=== PATIENT | male | born 2000 | race Caucasian/White ===

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

== ENCOUNTER 2021-08-27 11:44 | Emergency (ER) | payer MEDICAID, SELFPAY ==
[2021-08-27 11:46] VITALS: BP 133/78; PULSE 77; RESP 16; TEMP 36.3; O2SAT 100
--- NOTE | 2021-08-27 12:47 | ED.GENADUL_ITS ---
Discharge Plan Disposition Patient Disposition: HOME Condition: Improving Discharge Details Clinical Impression: Laceration Primary Care Provider: Moises Stanley ED Provider: Jazmine Hodge Home Meds and New Rx's Prescriptions: Continued bupropion HCl 300 mg tablet extended release 24 hr 300 mg PO QAM Qty: 90 3RF Discharge Instructions Instructions: Laceration (ED) Additional Instructions: Please return immediately to the emergency department if you develop any new or worsening symptoms, if your condition does not improve as expected, or if you become otherwise concerned. It is extremely important that you call soon as possible to make an appointment to be seen in follow-up for this visit by your primary care doctor. You will need to have your sutures removed in 10 days as we discussed Stand Alone Forms: Work Release Referrals: Moises Stanley MD [Primary Care Provider] - Discharge Data Discharge Date/Time-TO BE ENTERED AT DEPARTURE: 08/27/21 13:07 Medical Decision Making Vernon Benz is a 21-year-old man with history of depression, anxiety presenting to emergency department laceration. Patient reports that just prior to arrival he was at work when a wrench slipped while he was twisting a bolt, and he sustained a laceration to the dorsal aspect of base of the right thumb. He denies any other. He denies weakness, numbness, tingling. Patient reports that he is able to range thumb normally. Denies any other injury, denies any other pain. Patient states that he was previously well in his usual state of health. Record review shows last tetanus 2013. Exam shows 1.5 cm laceration over the right first MCP, superficial without bone/tendon exposure, does not penetrate the joint space, full painless range of motion of the thumb, thumb is neurovascularly intact. Tetanus up-to-date. Plan for laceration repair, see procedure note. Laceration repaired without complication. Wound dressing, baseball splint placed. I had a discussion with Patient regarding return to emergency department precautions, home care, and importance of outpatient follow-up. Pt verbalizes understanding of the plan and is amenable. Patient discharged to home with clear plan for outpatient follow-up. All questions were answered. Disposition decision was made weighing the risks and benefits of hospitalization versus outpatient treatment, the risk for further decompensation, and the patient's wishes. HPI General Date/Time Provider Initiated Documentation: 08/27/21 11:49 . HPI Narrative: Vernon Benz is a 21-year-old man with history of depression, anxiety presenting to emergency department laceration. Patient reports that just prior to arrival he was at work when a wrench slipped while he was twisting a bolt, and he sustained a laceration to the dorsal aspect of base of the right thumb. He denies any other. He denies weakness, numbness, tingling. Patient reports that he is able to range thumb normally. Denies any other injury, denies any other pain. Patient states that he was previously well in his usual state of health. Record review shows last tetanus 2013. Related Data Home Medications Medication Instructions Recorded Confirmed bupropion HCl 300 mg 24 hr tablet, 300 mg PO QAM #90 tab 06/18/21 08/27/21 extended release Previous Rx's Medication Instructions Recorded bupropion HCl 300 mg 24 hr tablet, 300 mg PO QAM #90 tab 06/18/21 extended release Allergies Allergy/AdvReac Type Severity Reaction Status Date / Time fluoxetine AdvReac Verified 08/27/21 11:51 General Stated Complaint: Laceration GUY: 4 Review of Systems Narrative: Constitutional: denies fevers Eyes: denies eye pain ENT: denies ear pain, dental pain, sore throat Cardiovascular: denies chest pain Respiratory: denies SOB, cough GI: denies abdominal pain, vomiting, diarrhea : denies flank pain MSK: denies back pain, neck pain, arthralgias Skin: denies rash, reports skin wound to right thumb as per HPI Neuro: denies headaches, numbness, weakness PFSH All Active Problems (Updated 08/27/21 @ 12:45 by Jazmine Hodge MD) Laceration (Acute) Personal history of nicotine dependence (Acute) Anxiety (Acute 07/19/14) see note 07/19/14 worries about dying, parents, checks doors at night , crowds Depressive disorder (Acute 07/19/14) started on fluox 07/24 -- restart meds 09/05/29 see note STOPPED MEDS 10/26- TREMOR AND NOT HELPING 10/29/19 start sertraline 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 Paternal Grandmother No problems noted. Social History Smoking/Tobacco Use Status: Current every day Tobacco Type: e-cigarettes and smokeless tobacco Tobacco: How many years used: 5 Smokeless tobacco user: chewing tobacco and other Second Hand Exposure: Yes Smoking risk assessment performed?: Yes Alcohol Intake: current Alcohol Intake frequency: a few times a week Alcohol type: beer and hard liquor Drug use: Never Substance use type: does not use Caregiver/Support person: Yes Household members: significant other Housing: apartment Communication Needs: None Do you need help understanding health information?: Never Pets and animals: Yes Pets and animals: cat(s) Sexually active: Yes Do you think of yourself as: straight/heterosexual Current gender identity: male What is your relationship status?: living with partner How often do you talk on the phone with friends or family?: three or more times per week How often do you get together with friends or relatives?: twice per week How often do you attend congregation or denominational services?: decline to answer Do you belong to any clubs or organized social groups?: no Panel score (0-1 are the most socially isolated patients): 2 Duration: < 15 minutes/day Nichole/Anabaptism: No preference Special nichole needs: No Seatbelt use: never Drive intox or ride w/intox commercial relief driver: No Do you feel safe at home: Yes Do you feel safe in your relationship?: Yes Exam Narrative Exam Narrative: Constitutional: well and [id number], pleasant, conversing normally HENT: head atraumatic/normocephalic/normal inspection, mucous membranes moist Eyes: conjunctiva normal, sclera normal, pupils 3mm b/l Neck: no stridor, normal ROM, trachea midline Resp: normal work of breathing, speaking in full sentences Cardio: normal rate, normal rhythm Skin: warm, dry, normal color, no rash Neuro: alert, not altered, grossly non-focal, normal tone Ext: no edema, 1.5 cm laceration over the dorsal aspect of the right first MCP joint. Bleeding controlled. Laceration is superficial, no underlying structures exposed, no bony tenderness of the MCP joint, full range of motion of the, painless. Normal sensation motor exam of the thumb, brisk cap refill. No other injury of the right hand. Psych: normal mood, normal affect, normal behavior Course Vital Signs Vital signs: Vital Signs Temperature 36.3 C L 08/27/21 11:46 Pulse 77 08/27/21 11:46 Respiratory Rate 16 08/27/21 11:46 Blood Pressure 133/78 08/27/21 11:46 Pulse Oximetry 100 08/27/21 11:46 Temperature 36.3 C L 08/27/21 11:46 Temperature Source Temporal Artery Scan 08/27/21 11:46 Pulse 77 08/27/21 11:46 Respiratory Rate 16 08/27/21 11:46 Respiratory Effort Non-Labored 08/27/21 11:49 Blood Pressure 133/78 08/27/21 11:46 Blood Pressure Position Sitting 08/27/21 11:46 Pulse Oximetry 100 08/27/21 11:46 Oxygen Delivery Method Room Air 08/27/21 11:46 Oxygen Flow Rate 0 08/27/21 11:46 Pain Level 6 08/27/21 11:51 Procedures Laceration Laceration 1: Site: hand Side (If applicable): right Size (cm): 1.5 Description: linear Depth: simple, single layer Local Anesthetic: Lidocaine 1% and with Epi Amount of anesthesia used (mL): 2 Pre-repair: irrigated extensively (Under pressure) Skin layer closed with: nylon Size (cm): 4-0 Number of sutures: 3 Technique: simple, interrupted PAWSS Have you Been Recently Intoxicated or Drunk Within the Last 30 days?: No Have you Ever Experienced Previous Episodes of Alcohol Withdrawal?: No Have you ever Experienced Withdrawal Seizures?: No Have you ever Experienced Delirium Tremens(DT)s?: No Have you ever undergone Alcohol Rehabilitation Treatment (i.e, inpt ot outpatie nt treatment programs)?: No Have you ever Experienced Blackouts?: No Have you ever Combined Alcohol with other Downers within the last 90 days?: No Have you ever Combined Alcohol with any other Substance of Abuse during the last 90 days?: No Positive Blood Alcohol level on Presentation? [PCS.BAL]: No Evidence of Increased Autonomic Activity (i.e. HR>120, tremor, sweating, agitation, nausea)?: No Result: 0
== END 2021-08-27 13:07 | disposition home or self-care (01) ==
PROVIDERS: Emergency Provider Student in an Organized Health Care Education/Training Program; PCP Family Medicine
DX: S61.011A Laceration without foreign body of right thumb without damage to nail, initial encounter (principal); W27.8XXA Contact with other nonpowered hand tool, initial encounter; Y99.0 Civilian activity done for income or pay
CPT/HCPCS: 12001; 29130

== ENCOUNTER 2021-12-01 14:29 | Emergency (ER) | payer MEDICAID, SELFPAY ==
--- NOTE | 2021-12-01 14:30 | RT.EKG_ITS ---
APPROVED REPORT Exam: Resting ECG Reason for Exam: overdose Patient Location: E HR:59 bpm ECG Measurements Heart Rate 59 AXIS OH 105 P 47 QRSd 84 QRS 80 QT 376 T 59 QTc 370 Conclusion Sinus bradycardia...rate< 60 Atrial premature complex...SV complex w/ short R-R interval. Sinus. Normal axis. No STEMI. I have reviewed and interpreted ECG and agree with software generated interpretation.
[2021-12-01 14:33] VITALS: BP 137/90; PULSE 83; RESP 16; TEMP 36.9; O2SAT 100
--- NOTE | 2021-12-01 14:47 | ED.GENADUL_ITS ---
Discharge Plan Disposition Patient Disposition: AGAINST MEDICAL ADVICE Discharge Details Clinical Impression: Accidental drug overdose Primary Care Provider: Rodrigo Benítez ED Provider: David Brian Home Meds and New Rx's Prescriptions: No Action bupropion HCl 300 mg tablet extended release 24 hr 300 mg PO QAM Qty: 90 3RF ibuprofen 300 mg Tablet 600 mg PO PRN PRN Discharge Instructions Instructions: Adult Overdose (ED) Additional Instructions: At this time the poison control recommendations are observation for 16 hours, you have declined this and are going to leave AMA. As we discussed, please watch for new or worsening symptoms and return immediately to the ER Discharge Data Discharge Date/Time-TO BE ENTERED AT DEPARTURE: 12/01/21 15:09 Medical Decision Making 21-year-old gentleman who presents for a potential accidental overdose. He s tates that he meant to take 4 tablets of ibuprofen and may have accidentally take 4 tablets of 300 mg bupropion XL approximately 30 minutes ago. Patient states that he is unsure which of the medications he took but at this time is feeling asymptomatic. He contacted his mother who then contacted poison control recommended coming to the ER. We were contacted by poison control and they recommended 16-hour observation. Patient potentially took more than 1 g and symptoms to watch for which include tachycardia, agitation, potential seizures, treat symptomatically. EKG was obtained and was unremarkable. I discussed the recommendations of poison control with the patient and at this time he is asymptomatic, not sure if in fact he took the wrong medication, denies any suicidal homicidal ideations, is requesting discharge. He does not feel as though waiting 16 hours in observation is appropriate as he feels well. I did explain to him the recommendations of poison control. He is requesting to leave AMA. Patient appears clinically sober, is of sound mind, and based upon my clinical examination has the capacity to make their own decisions. We have offered treatment options and discussed the the risks and benefits of these options and refusing these options, including and/or disability specific to the patient's pathology. Pt is able to discuss and understands the risks and b enefits and alternatives of treatment and refusing treatment. We have tried to involve the patient's family or support group that was present here in the exam room. The patient still chooses to leave before evaluation and treatment can be completed AGAINST MEDICAL ADVICE. This documentation was generated using Dragon dictation system, please disregard any oddities of phrase or misspellings. Medical Records Medical records reviewed: Yes I reviewed the patient's medical records. ECG Data Attestation: I personally reviewed and interpreted this ECG (s) as follows: Interpretation: Please see official report by Dr. Arreola. Sinus bradycardia, ventricular rate of 59, no STEMI HPI General Mode of arrival: ambulatory . Date/Time Provider Initiated Documentation: 12/01/21 14:47 . Limitations to Documentation: no limitations . Information obtained by: patient and family . HPI Narrative: This is a 21-year-old male, past medical history of anxiety, depression, OCD, presenting to the ER for potential accidental overdose. He states that he stayed up late last night, awoke today with a mild headache which is not uncommon. He meant to take ibuprofen but questions if instead he took 4 tablets of his bupropion HCl 300 mg XL instead. He did state that he took his normal dose of 1 tablet this morning. Patient reports that he is currently asymptomatic but after calling his mother and then contacting poison control, they recommended coming to the ER. He again denies any symptoms whatsoever, reports this was purely accidental, denies any SI or HI, reports feeling safe. He denies any visual changes, neck pain, chest pain, shortness of breath, rapid heart rate, abdominal pain, nausea, vomiting, numbness, tingling, weakness, agitation. Related Data Home Medications Medication Instructions Recorded Confirmed bupropion HCl 300 mg 24 hr tablet, 300 mg PO QAM #90 tabs 06/18/21 12/01/21 extended release ibuprofen 300 mg tablet 600 mg PO PRN PRN 12/01/21 12/01/21 Previous Rx's Medication Instructions Recorded bupropion HCl 300 mg 24 hr tablet, 300 mg PO QAM #90 tabs 06/18/21 extended release Allergies Allergy/AdvReac Type Severity Reaction Status Date / Time fluoxetine AdvReac tremulousne Verified 12/01/21 14:40 ss General Stated Complaint: OD/Poison GUY: 4 Review of Systems Constitutional Constitutional: Denies fever(s), Reports headache(s) and Denies weakness Eyes Eyes: Denies change in vision ENT Ears, Nose, Mouth, and Throat: Reports headache(s) and Denies neck pain Cardiovascular Cardiovascular: Denies chest pain and Denies dyspnea Respiratory Respiratory: Denies dyspnea Gastrointestinal Gastrointestinal: Denies abdominal pain, Denies nausea and Denies vomiting Musculoskeletal Musculoskeletal: Denies neck pain and Denies tingling Integumentary/Breasts Skin/Breast: Denies rash Neurologic Neurologic: Reports headache(s), Denies tingling and Denies weakness Psychiatric Psychiatric: Denies homicidal ideation and Denies suicidal ideation PFSH All Active Problems Accidental drug overdose (Acute) Personal history of nicotine dependence (Acute) Anxiety (Acute 07/19/14) see note 07/19/14 worries about dying, parents, checks doors at night , crowds Depressive disorder (Acute 07/19/14) started on fluox 07/24 -- restart meds 09/05/29 see note STOPPED MEDS 10/26- TREMOR AND NOT HELPING 10/29/19 start sertraline 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 Paternal Grandmother No problems noted. Social History Smoking/Tobacco Use Status: Never Tobacco: How many years used: 5 Smokeless tobacco user: chewing tobacco and other Second Hand Exposure: Yes Smoking risk assessment performed?: Yes Alcohol Intake: current Alcohol Intake frequency: a few times a week Alcohol type: beer and hard liquor Drug use: Never Substance use type: does not use Caregiver/Support person: Yes Household members: significant other Housing: apartment Communication Needs: None Do you need help understanding health information?: Never Pets and animals: Yes Pets and animals: cat(s) Sexually active: Yes Do you think of yourself as: straight/heterosexual Current gender identity: male What is your relationship status?: living with partner How often do you talk on the phone with friends or family?: three or more times per week How often do you get together with friends or relatives?: twice per week How often do you attend uatsdin or episcopalian services?: decline to answer Do you belong to any clubs or organized social groups?: no Panel score (0-1 are the most socially isolated patients): 2 Duration: < 15 minutes/day Nichole/Jainism: No preference Special nichole needs: No Seatbelt use: never Drive intox or ride w/intox patrol driver: No Do you feel safe at home: Yes Do you feel safe in your relationship?: Yes Exam Const General: cooperative, healthy appearing, comfortable and no acute distress Orientation: alert, awake and oriented x3 HENMT Head: normal to inspection, normocephalic and atraumatic Face and sinus: normal facial exam Mouth: moist mucous membranes Eyes General: appearance normal, both eyes and all related structures Conjunctivae: conjunctivae normal Neck Neck: normal visual inspection, full ROM, trachea midline and supple Resp Effort & Inspection: normal respiratory effort and able to speak in complete sentences Auscultation: clear to auscultation bilaterally Cardio Rate: regular rate Rhythm: regular rhythm GI Palpation: soft and nontender Back/Spine/Pelvis Back: No back tenderness Skin General skin exam: no rashes or lesions noted Neuro General: patient alert, patient awake, patient oriented x3, moves all extremities and no focal motor deficits Cognition: normal cognition Speech: speech normal Gait: normal gait Motor: muscle tone normal throughout Sensory Exam: no sensory deficits noted Extrem General: normal to inspection and full ROM Psych Appearance: grossly normal Mental Status: mental status grossly normal Speech and Movement: speech and movement normal Mood: congruent mood Affect: normal affect Attitude: cooperative Thought Process: normal Thought Content: normal, no homicidality and suicidality Insight: insight good Judgment: judgment good Course Vital Signs Vital signs: Vital Signs Temperature 36.9 C 12/01/21 14:33 Pulse 83 12/01/21 14:33 Respiratory Rate 16 12/01/21 14:33 Blood Pressure 137/90 12/01/21 14:33 Pulse Oximetry 100 12/01/21 14:33 Temperature 36.9 C 12/01/21 14:33 Temperature Source Temporal Artery Scan 12/01/21 14:33 Pulse 83 12/01/21 14:33 Respiratory Rate 16 12/01/21 14:33 Respiratory Effort 12/01/21 14:37 Blood Pressure 137/90 12/01/21 14:33 Blood Pressure Position Sitting 12/01/21 14:33 Pulse Oximetry 100 12/01/21 14:33 Oxygen Delivery Method Room Air 12/01/21 14:33 Oxygen Flow Rate 0 12/01/21 14:33 Pain Level 0 12/01/21 14:33 PAWSS Have you Been Recently Intoxicated or Drunk Within the Last 30 days?: Yes Have you Ever Experienced Previous Episodes of Alcohol Withdrawal?: No Have you ever Experienced Withdrawal Seizures?: No Have you ever Experienced Delirium Tremens(DT)s?: No Have you ever undergone Alcohol Rehabilitation Treatment (i.e, inpt ot outpatient treatment programs)?: No Have you ever Experienced Blackouts?: No Have you ever Combined Alcohol with other Downers within the last 90 days?: No Have you ever Combined Alcohol with any other Substance of Abuse during the last 90 days?: No Positive Blood Alcohol level on Presentation? [PCS.BAL]: No Result: 1
[2021-12-01 15:08] VITALS: RESP 17
== END 2021-12-01 15:09 | disposition left against medical advice (07) ==
PROVIDERS: Emergency Provider Physician Assistant; PCP Nurse Practitioner Family
DX: T65.91XA Toxic effect of unspecified substance, accidental (unintentional), initial encounter (principal); R51.9 Headache, unspecified; F17.220 Nicotine dependence, chewing tobacco, uncomplicated; F17.290 Nicotine dependence, other tobacco product, uncomplicated; Z53.20 Procedure and treatment not carried out because of patient's decision for unspecified reasons
CPT/HCPCS: 93005; 99283; 93010; 99284

== ENCOUNTER 2024-01-17 10:22 | Outpatient (CLI) | payer BC, SELFPAY ==
--- NOTE | 2024-01-17 10:15 | RT.EKG_ITS ---
APPROVED REPORT Exam: Resting ECG Reason for Exam: Chest pain/Light headedness Patient Location: O HR:60 bpm ECG Measurements Heart Rate 60 AXIS AZ 117 P 62 QRSd 89 QRS 70 QT 399 T 53 QTc 399 Conclusion Sinus rhythm...normal P axis, V-rate 50- 99 Borderline short AZ interval...AZ int <120mS Otherwise normal ECG
== END 2024-01-17 10:23 | disposition home or self-care (01) ==
LOC: DI.CM 10:23
PROVIDERS: PCP Nurse Practitioner Family; Visit Provider Physician Assistant
DX: R07.9 Chest pain, unspecified (principal)
CPT/HCPCS: 93010

== ENCOUNTER 2024-01-17 11:31 | Emergency (ER) | payer BC, SELFPAY ==
[2024-01-17] VITALS (11 sets, daily range): BP systolic 113–125; BP diastolic 68–69; PULSE 58–83; RESP 11–20; TEMP 36.4; O2SAT 99
--- NOTE | 2024-01-17 11:30 | RT.EKG_ITS ---
APPROVED REPORT Exam: Resting ECG Reason for Exam: Chest Pain Patient Location: E HR:74 bpm ECG Measurements Heart Rate 74 AXIS VA 113 P 71 QRSd 84 QRS 74 QT 372 T 55 QTc 414 Conclusion Sinus rhythm.. 74 normal axis no stemi
[2024-01-17 12:02] LABS: Abs Immature Grans 0.03 10^3/uL (0.0-0.06); Absolute Basophil Count 0.04 10^3/uL (0.0-0.2); Absolute Eosinophil Count 0.13 10^3/uL (0.0-0.7); Absolute Lymphocyte Count 2.42 10^3/uL (1.2-3.4); Absolute Monocyte Count 0.52 10^3/uL (0.1-0.8); Absolute Neutrophil Count 3.71 10^3/uL (1.2-6.7); Basophils % 0.6 %; Eosinophils % 1.9 %; HCT 45.2 % (40.0-50.0); HGB 16.3 g/dL (13.5-17.5); Immature Grans % 0.4 %; Lymphocytes % 35.3 %; MCH 31.7 pg (27.0-33.0); MCHC 36.1 % (32.0-36.0); MCV 88 fL (80-95); Monocytes % 7.6 %; Neutrophils % 54.2 %; Platelet Count 288 10^3/uL (130-400); RBC 5.14 10^6/uL (4.36-5.78); RDW 11.5 % (11.8-14.1); WBC 6.85 10^3/uL (4.4-10.8)
--- NOTE | 2024-01-17 12:12 | DI.RAD_ITS ---
Exam(s) XR CHEST 2V PA LATERAL EXAM: XR CHEST 2V PA LATERAL CLINICAL HISTORY: chest pain. TECHNIQUE: 2D digital imaging was performed. COMPARISON: No exams were available for comparison FINDINGS: 2 views: Heart size is normal. The mediastinum is not widened. Lungs are clear. No infiltrates nor pleural effusions. IMPRESSION: No acute pulmonary findings. DATA REPOSITORY: RADIATION DOSE DELIVERED:
[2024-01-17 12:19] LABS: ALT 25 U/L (16-63); AST 15 U/L (15-37); Albumin 4.6 g/dL (3.4-5.0); Alkaline Phosphatase 74 U/L (46-116); Anion Gap 7.6 mmol/L (3-11); BUN 13 mg/dL (7-18); Bilirubin, Total 0.62 mg/dL (0.2-1.0); CO2 29.4 mmol/L (21.0-32.0); Chloride 104 mmol/L (98-107); Estimated GFR 109.13 (mL/min/1.73m2); Glucose 96 mg/dL (74-106); Magnesium 1.8 mg/dL (1.8-2.4); Potassium 3.7 mmol/L (3.5-5.1); Sodium 141 mmol/L (136-145); Total Protein 7.8 g/dL (6.4-8.2); Troponin I < 50 ng/L (< or =60)
[2024-01-17 12:27] LABS: Calcium 9.2 mg/dL (8.5-10.1)
--- NOTE | 2024-01-17 12:27 | ED.GENADUL_ITS ---
Discharge Plan Disposition Patient Disposition: Home Condition: Stable Discharge Details Clinical Impression: Chest pain Primary Care Provider: Rodrigo Benítez ED Provider: Nubia Og Home Meds and New Rx's Prescriptions: No Action alprazolam 0.5 mg tablet 0.5 mg PO BID PRN (Reason: anxiety) Qty: 28 0RF guanfacine 1 mg tablet extended release 24 hr 1 mg PO QPM Qty: 30 2RF Discharge Instructions Instructions: Chest Pain, Adult ED Additional Instructions: * pain unlikely to be from your heart, EKG and blood work look normal today * chest xray is also normal * try motrin or tylenol for pain if your symptoms are more than brief * return with any concerns or follow up with PCP HPI General Date/Time Provider Initiated Documentation: 01/17/24 11:43 . Limitations to Documentation: no limitations . Information obtained by: patient . HPI Narrative: 23-year-old gentleman with out significant past medical history presents for evaluation of chest pain. He reports that since last night he has had 3 episodes of pain. Initially pain was substernal. Occurred while he was laying in bed. Did not radiate. Not associated with shortness of breath. This morning he had 2 episodes that were associated with some lightheadedness. These episodes were very brief. He localizes the pain in his left armpit. Is never had symptoms like this before. Not associated with exertion. Reports prior smoking history, but not a current smoker. Reports that his grandfather had a heart attack around age 40 that resulted in . Related Data Home Medications ?Medication ?Instructions ?Recorded ?Confirmed alprazolam 0.5 mg tablet 0.5 mg PO BID PRN anxiety #28 tabs 12/29/23 01/17/24 guanfacine 1 mg tablet,extended 1 mg PO QPM #30 tabs 12/29/23 01/17/24 release 24 hr Previous Rx's ?Medication ?Instructions ?Recorded alprazolam 0.5 mg tablet 0.5 mg PO BID PRN anxiety #28 tabs 12/29/23 guanfacine 1 mg tablet,extended 1 mg PO QPM #30 tabs 12/29/23 release 24 hr Allergies Allergy/AdvReac Type Severity Reaction Status Date / Time fluoxetine AdvReac tremulousne Verified 01/17/24 11:43 ss General Stated Complaint: Chest Pain UGY: 2 Exam Narrative Exam Narrative: Review of Systems: All systems reviewed & are unremarkable except as noted in HPI and below Well-developed, no acute distress NCAT PERRL, normal conjunctiva RRR no murmur, no chest wall tenderness Unlabored respiratory effort clear bilaterally Nondistended abdomen Extremities w/o deformity, no cyanosis, no edema No rashes or lesions. no focal neurologic deficits Appropriate mood and affect Course Vital Signs Vital signs: Vital Signs Temperature 36.4 C 01/17/24 11:36 Pulse 65 01/17/24 11:36 Respiratory Rate 16 01/17/24 11:36 Blood Pressure 125/69 01/17/24 11:36 Pulse Oximetry 99 01/17/24 11:36 Temperature 36.4 C 01/17/24 11:36 Pulse 65 01/17/24 11:36 Respiratory Rate 16 01/17/24 11:36 Blood Pressure 125/69 01/17/24 11:36 Blood Pressure Position Sitting 01/17/24 11:36 Pulse Oximetry 99 01/17/24 11:36 Oxygen Delivery Method Room Air 01/17/24 11:36 Oxygen Flow Rate 0 01/17/24 11:36 Pain Level 7 01/17/24 11:36 Lab/Test Results Lab/Test Results: Laboratory Tests Range/Units 01/17/24 11:52 WBC (4.4-10.8) 10^3/uL 6.85 RBC (4.36-5.78) 10^6/uL 5.14 Hgb (13.5-17.5) g/dL 16.3 Hct (40.0-50.0) % 45.2 MCV (80-95) fL 88 MCH (27.0-33.0) pg 31.7 MCHC (32.0-36.0) % 36.1 H RDW (11.8-14.1) % 11.5 L Plt Count (130-400) 10^3/uL 288 MPV (8.0-11.0) fL 9.0 Immature Gran % % 0.4 Neutrophils % % 54.2 Lymphocytes % % 35.3 Monocytes % % 7.6 Eosinophils % % 1.9 Basophils % % 0.6 Nucleated RBC % (0.0-0.3) % 0.0 Absolute Neutrophils (1.2-6.7) 10^3/uL 3.71 Absolute Lymphocytes (1.2-3.4) 10^3/uL 2.42 Absolute Monocytes (0.1-0.8) 10^3/uL 0.52 Absolute Eosinophils (0.0-0.7) 10^3/uL 0.13 Absolute Basophils (0.0-0.2) 10^3/uL 0.04 Sodium (136-145) mmol/L 141 Potassium (3.5-5.1) mmol/L 3.7 Chloride (98-107) mmol/L 104 Carbon Dioxide (21.0-32.0) mmol/L 29.4 Anion Gap (3-11) mmol/L 7.6 BUN (7-18) mg/dL 13 Creatinine (0.70-1.30) mg/dL 1.0 Est GFR (CKD-EPI 2020) (mL/min/1.73m2) 109.13 Glucose (74-106) mg/dL 96 Magnesium (1.8-2.4) mg/dL 1.8 Total Bilirubin (0.2-1.0) mg/dL 0.62 AST (15-37) U/L 15 ALT (16-63) U/L 25 Alkaline Phosphatase (46-116) U/L 74 Troponin I (< or =60) ng/L < 50 Total Protein (6.4-8.2) g/dL 7.8 Albumin (3.4-5.0) g/dL 4.6 Medical Decision Making Emergency evaluation of chest pain. Patient has no chest pain at this time. He has very low risk factors for cardiac etiology of his pain. Suspect pleurisy or musculoskeletal pain to be more likely cause. EKG is sinus 74, normal axis, no acute ischemic changes. Other than his family history of his grandfather having early cardiac at age 40, the patient is low risk. Other than the family history, I do not feel the patient needs blood work, but he seems to be fairly anxious about a cardiac etiology and was sent from urgent care because of it. Lab work was obtained, no leukocytosis, no anemia. Normal platelet count. Electrolytes without derangement. Normal renal function, troponin is negative. Chest x-ray reviewed, no focal consolidation, normal heart size, no pulmonary edema or pleural effusion. Return precautions advised. Recommend follow-up with PCP as needed. Discharged in good condition. Medical Records Medical records reviewed: Yes I reviewed the patient's medical records. Lab Data Lab results reviewed: Yes I reviewed the patient's lab results. 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 Paternal Grandmother No problems noted. Social History Smoking/Tobacco Use Status: Former Tobacco Use tobacco type: e-cigarettes and smokeless tobacco Quit Date: 12/10/21 Tobacco: How many years used: 4 Smokeless tobacco user: chewing tobacco and other Second Hand Exposure: Yes Smoking risk assessment performed?: Yes Alcohol Intake: current Alcohol Intake frequency: a few times a week Alcohol type: beer and hard liquor Drug use: Never Substance use type: does not use Caregiver/Support person: No Household members: significant other and children Housing: apartment Communication Needs: None Do you need help understanding health information?: Never Pets and animals: Yes Pets and animals: cat(s) Sexually active: Yes Do you think of yourself as: straight/heterosexual Current gender identity: male What is your relationship status?: living with partner How often do you talk on the phone with friends or family?: three or more times per week How often do you get together with friends or relatives?: three or more times per week How often do you attend sikh or confucianism services?: decline to answer Do you belong to any clubs or organized social groups?: no Panel score (0-1 are the most socially isolated patients): 2 Duration: < 15 minutes/day Nichole/Evangelical: No preference Special nichole needs: No Seatbelt use: never Helmet use: No Drive intox or ride w/intox special client bus driver: No Do you feel safe at home: Yes Do you feel safe in your relationship?: Yes
--- NOTE | 2024-01-17 13:25 | DI.VRAD_ITS ---
PROCEDURE INFORMATION: Exam: XR Chest Exam date and time: 01/17/2024 12:09 PM Age: 23 years old Clinical indication: Pain; Other: Chest TECHNIQUE: Imaging protocol: Radiologic exam of the chest. Views: 2 views. COMPARISON: CT CHEST W 01/05/2019 11:36 AM FINDINGS: Lungs: Unremarkable. No consolidation. Pleural spaces: Unremarkable. No pleural effusion. No pneumothorax. Heart/Mediastinum: Unremarkable. No cardiomegaly. Bones/joints: Unremarkable. IMPRESSION: No acute findings. Dictated and Authenticated by: Albaro Caldera MD. Ordering:[facility] Lenka Merrill MD
== END 2024-01-17 12:43 | disposition home or self-care (01) ==
PROVIDERS: Emergency Provider Emergency Medicine; PCP Nurse Practitioner Family
DX: R07.9 Chest pain, unspecified (principal); R11.0 Nausea; Z82.49 Family history of ischemic heart disease and other diseases of the circulatory system; Z87.891 Personal history of nicotine dependence
CPT/HCPCS: 36415; 80053; 93005; 99285; 71046; 83735; 84484; 85025; 93010; 99284